=== PATIENT | male | born 1985 | race Two or more races ===

== ENCOUNTER 2019-07-16 13:34 | Emergency (ER) | payer BC ==
[~2019-07-16] VITALS: Ht 188 cm; Wt 84.4 kg
[2019-07-16] MEDS ORDERED: IV NORMAL SALINE 1000ML BAG 1,000 ML IV SCH (13:47)
--- NOTE | 2019-07-16 13:52 | PHYS DOC ---
Adult General Chief Complaint Chief Complaint: ABDOMINAL PAIN HPI HPI Patient is a 33-year-old male who presents with complaint of right-sided abdominal pain that started last night about 1 AM. Patient states that pain got much more severe around 6 AM this morning stating that it's around a 9 out of 10 pain. He states that pain is been constant since that time. Patient initially was seen over at urgent care earlier this afternoon and they had recommended the patient come to the emergency room for CT to evaluate for appendicitis. Patient states that pain is worsened when he walks or when the car goes over bumps. He states that he has been nauseated but has had no vomiting. His last normal bowel movement was yesterday.[] Review of Systems Review of Systems Constitutional: Denies fever or chills [] Respiratory: Denies cough or shortness of breath [] Cardiovascular: No additional information not addressed in HPI [] GI: Complains of abdominal pain with nausea. Denies vomiting or diarrhea [] : Denies dysuria or hematuria [] Musculoskeletal: Denies back pain or joint pain [] Integument: Denies rash or skin lesions [] Neurologic: Denies headache, focal weakness or sensory changes [] All other systems were reviewed and found to be within normal limits, except as documented in this note. Current Medications Current Medications Current Medications Medications (Trade) Dose Ordered Sig/Isis Start Time Stop Time Status Last Admin Dose Admin Info (CONTRAST GIVEN -- Rx MONITORING) 1 each PRN DAILY PRN 07/16/19 15:15 07/18/19 15:14 Iohexol (Omnipaque 300 Mg/ml) 75 ml 1X ONCE 07/16/19 15:00 07/16/19 15:07 DC 07/16/19 15:03 75 ML Morphine Sulfate (Morphine Sulfate) 4 mg PRN Q15MIN PRN 07/16/19 14:00 07/17/19 13:59 07/16/19 13:59 4 MG Ondansetron HCl (Zofran) 4 mg 1X ONCE 07/16/19 14:00 07/16/19 14:01 DC 07/16/19 14:00 4 MG Sodium Chloride 1,000 ml @ 1,000 mls/hr Q1H 07/16/19 13:47 07/16/19 14:46 DC 07/16/19 13:59 1,000 MLS/HR Allergies Allergies Allergies Coded Allergies Type Severity Reaction Last Updated Verified No Known Drug Allergies 07/16/19 No Physical Exam Physical Exam Constitutional: Well developed, well nourished, no acute distress, non-toxic appearance. [] HENT: Normocephalic, atraumatic, bilateral external ears normal, oropharynx moist, no oral exudates, nose normal. [] Eyes: PERRLA, EOMI, conjunctiva normal, no discharge. [] Neck: Normal range of motion, no tenderness, supple. [] Cardiovascular: Regular rate and rhythm[] Lungs & Thorax: Bilateral breath sounds clear to auscultation [] Abdomen: Bowel sounds normal, soft, with moderate right lower quadrant tenderness. [] Skin: Warm, dry, no erythema, no rash. [] Extremities: No tenderness, no cyanosis, no clubbing, ROM intact, no edema. [] Neurologic: Alert and oriented X 3, no focal deficits noted. [] Current Patient Data Vital Signs Vital Signs Date Time Temp Pulse Resp B/P (MAP) Pulse Ox O2 Delivery O2 Flow Rate FiO2 07/16/19 13:59 14 98 07/16/19 13:48 55 129/68 (88) Room Air 07/16/19 13:37 97.5 97.5 Lab Values Laboratory Tests Test 07/16/19 14:11 White Blood Count 15.6 x10^3/uL (4.0-11.0) H Red Blood Count 4.45 x10^6/uL (4.30-5.70) Hemoglobin 13.8 g/dL (13.0-17.5) Hematocrit 41.0 % (39.0-53.0) Mean Corpuscular Volume 92 fL (79-100) Mean Corpuscular Hemoglobin 31 pg (25-35) Mean Corpuscular Hemoglobin Concent 34 g/dL (31-37) Red Cell Distribution Width 13.4 % (11.5-14.5) Platelet Count 231 x10^3/uL (140-400) Neutrophils (%) (Auto) 89 % (31-73) H Lymphocytes (%) (Auto) 4 % (24-48) L Monocytes (%) (Auto) 6 % (0-9) Eosinophils (%) (Auto) 0 % (0-3) Basophils (%) (Auto) 0 % (0-3) Neutrophils # (Auto) 14.0 x10^3/uL (1.8-7.7) H Lymphocytes # (Auto) 0.7 x10^3/uL (1.0-4.8) L Monocytes # (Auto) 0.9 x10^3/uL (0.0-1.1) Eosinophils # (Auto) 0.0 x10^3/uL (0.0-0.7) Basophils # (Auto) 0.0 x10^3/uL (0.0-0.2) Platelet Estimate Pending Sodium Level 141 mmol/L (136-145) Potassium Level 3.8 mmol/L (3.5-5.1) Chloride Level 106 mmol/L (98-107) Carbon Dioxide Level 27 mmol/L (21-32) Anion Gap 8 (6-14) Blood Urea Nitrogen 21 mg/dL (8-26) Creatinine 0.7 mg/dL (0.7-1.3) Estimated GFR (Cockcroft-Gault) 129.9 BUN/Creatinine Ratio 30 (6-20) H Glucose Level 127 mg/dL (70-99) H Calcium Level 8.1 mg/dL (8.5-10.1) L Total Bilirubin 2.4 mg/dL (0.2-1.0) H Aspartate Amino Transferase (AST) 23 U/L (15-37) Alanine Aminotransferase (ALT) 61 U/L (16-63) Alkaline Phosphatase 63 U/L (46-116) Total Protein 6.8 g/dL (6.4-8.2) Albumin 3.5 g/dL (3.4-5.0) Albumin/Globulin Ratio 1.1 (1.0-1.7) Lipase 67 U/L (73-393) L Laboratory Tests 07/16/19 14:11 Laboratory Tests 07/16/19 14:11 EKG EKG [] Radiology/Procedures Radiology/Procedures [] Impressions: PROCEDURE: CT ABD PELV W/ IV CONTRST ONLY CT of the abdomen and pelvis with contrast. HISTORY: Right lower quadrant pain CT scan of the abdomen pelvis was done using 75 mL Omnipaque 300 contrast. The lung bases are clear. There is no effusion. A liver lesion is not identified. Gallbladder is mildly distended but without calcified gallstones or gallbladder wall thickening. Spleen and adrenal glands are normal. Pancreas is normal. There is no mass or hydronephrosis in the kidneys. A ureteral calculus is not identified. There is no bowel obstruction. Appendix is normal. IMPRESSION: 1. Mildly distended gallbladder without gallbladder wall thickening. 2. No renal or ureteral calculus noted. 3. No bowel obstruction. 4. Normal appendix. PQRS Compliance Statement: One or more of the following individualized dose reduction techniques were utilized for this examination: 1. Automated exposure control 2. Adjustment of the mA and/or kV according to patient size 3. Use of iterative reconstruction technique Electronically signed by: Champ Olivier MD (07/16/2019 3:13 PM) [id number] DICTATED and SIGNED BY: CHAMP OLIVIER MD DATE: 07/16/191512 Course & Med Decision Making Course & Med Decision Making Pertinent Labs and Imaging studies reviewed. (See chart for details) [] Dragon Disclaimer Dragon Disclaimer This electronic medical record was generated, in whole or in part, using a voice recognition dictation system. Departure Departure Impression: Primary Impression: Lower abdominal pain Disposition: 01 HOME, SELF-CARE Condition: STABLE Patient Instructions: Abdominal Pain Scripts Ondansetron (ONDANSETRON ODT) 4 Mg Tab.rapdis 1 TAB PO PRN Q6-8HRS PRN for NAUSEA, #15 TAB Prov: BENITA VALDOVINOS Jr. DO 07/16/19 Hydrocodone/Apap 5-325 (NORCO 5-325 TABLET) 1 Each Tablet 1-2 EACH PO PRN Q6HRS PRN for PAIN, #15 as needed for pain Prov: BENITA VALDOVINOS Jr. DO 07/16/19 BENITA VALDOVINOS Jr. DO Jul 16, 2019 13:52
[2019-07-16] MEDS ORDERED: MORPHINE SULFATE 4 MG/ML VIAL. IV/SQ PRN (14:00)
[2019-07-16] MEDS ORDERED: ONDANSETRON PF 4 MG/2 ML VIAL. IV ONE (14:00)
[2019-07-16 14:18] LABS: BASO % 0 % (0-3); EOS % 0 % (0-3); HEMOGLOBIN 13.8 g/dL (13.0-17.5); LYMPH # 0.7 x10^3/uL (1.0-4.8); LYMPH % 4 % (24-48); MEAN CORPUSCULAR HEMOGLOBIN 31 pg (25-35); MEAN CORPUSCULAR HGB CONC 34 g/dL (31-37); MEAN CORPUSCULAR VOLUME 92 fL (79-100); MONO # 0.9 x10^3/uL (0.0-1.1); MONO % 6 % (0-9); NEUT % 89 % (31-73); PLATELET COUNT 231 x10^3/uL (140-400); RED BLOOD COUNT 4.45 x10^6/uL (4.30-5.70); RED CELL DISTRIBUTION WIDTH 13.4 % (11.5-14.5); WHITE BLOOD COUNT 15.6 x10^3/uL (4.0-11.0)
[2019-07-16 14:27] LABS: CALCIUM 8.1 mg/dL (8.5-10.1); CREATININE 0.7 mg/dL (0.7-1.3); GFR 129.9; POTASSIUM 3.8 mmol/L (3.5-5.1)
[2019-07-16 14:32] LABS: ALBUMIN 3.5 g/dL (3.4-5.0); ALBUMIN/GLOBULIN RATIO 1.1 (1.0-1.7); TOTAL BILIRUBIN 2.4 mg/dL (0.2-1.0); TOTAL PROTEIN 6.8 g/dL (6.4-8.2)
[2019-07-16 14:48] VITALS: BP 108/57
[2019-07-16] MEDS ORDERED: IOHEXOL 300 MG/ML 100ML VIAL. IV ONE (15:00)
[2019-07-16] MEDS ORDERED: CONTRAST GIVEN. MC PRN (15:15)
--- NOTE | 2019-07-16 15:15 | RAD ---
CT of the abdomen and pelvis with contrast. HISTORY: Right lower quadrant pain CT scan of the abdomen pelvis was done using 75 mL Omnipaque 300 contrast. The lung bases are clear. There is no effusion. A liver lesion is not identified. Gallbladder is mildly distended but without calcified gallstones or gallbladder wall thickening. Spleen and adrenal glands are normal. Pancreas is normal. There is no mass or hydronephrosis in the kidneys. A ureteral calculus is not identified. There is no bowel obstruction. Appendix is normal. IMPRESSION: 1. Mildly distended gallbladder without gallbladder wall thickening. 2. No renal or ureteral calculus noted. 3. No bowel obstruction. 4. Normal appendix. PQRS Compliance Statement: One or more of the following individualized dose reduction techniques were utilized for this examination: 1. Automated exposure control 2. Adjustment of the mA and/or kV according to patient size 3. Use of iterative reconstruction technique Electronically signed by: Devan Kimball MD (07/16/2019 3:13 PM) [id number]
[2019-07-16 15:25] LABS: % BANDS 11 % (0-9); % LYMPHS 4 % (24-48); % MONOS 8 % (0-10); % SEGS 77 % (35-66)
[2019-07-16 15:27] LABS: PLT ESTIMATE ADEQUATE (ADEQUATE)
[2019-07-16] MEDS ORDERED: ONDA4TAB12 PO (15:27)
[2019-07-16] MEDS ORDERED: HYDR-3164 PO (15:27)
[2019-07-17] MEDS ORDERED: HYOS0.1265 SL (04:35)
[2019-07-17] MEDS ORDERED: FAMO-63 PO (04:35)
== END 2019-07-16 15:35 | disposition home or self-care (01) ==
LOC: ER 13:34
DX: R10.31 Right lower quadrant pain (principal); R11.0 Nausea; Z79.899 Other long term (current) drug therapy
CPT/HCPCS: 36415; 74177; 80053; 83690; 85007; 85025; 96374; 96375; 99285; J2270; J2405; J7030; Q9967

== ENCOUNTER 2019-07-17 03:11 | Emergency (ER) | payer BC ==
[~2019-07-17] VITALS: Ht 188 cm; Wt 84.4 kg
[~2019-07-17 03:11] MED LIST: HYDR-3164 PO; ONDA4TAB12 PO
[2019-07-17] MEDS ORDERED: ONDANSETRON PF 4 MG/2 ML VIAL. IV ONE (03:30)
[2019-07-17] MEDS ORDERED: FAMOTIDINE 20 MG/2 ML VIAL IVP ONE (03:30)
[2019-07-17] MEDS ORDERED: IV NORMAL SALINE 1000ML BAG 1,000 ML IV ONE (03:30)
[2019-07-17] MEDS ORDERED: KETOROLAC 15 MG/ML VIAL. IVP ONE (03:30)
--- NOTE | 2019-07-17 03:48 | PHYS DOC ---
Past Medical History Past Medical History: No Pertinent History Past Surgical History: No Surgical History Alcohol Use: None Drug Use: None Adult General Chief Complaint Chief Complaint: ABDOMINAL PAIN HPI HPI Patient is a 33 year old male who presents with abdominal pain. Pt is accompanied by his and since he only speaks [place]an, his translated for him. Pt reports having burning, constant RUQ and epigastric abdominal pain that started on Sat. He rates it as 8/10. Pt presented to the ED in the afternoon yesterday and CT abdomen shows to have mildly dilated gallbladder without any signs of gallbladder wall thickening. Pt reports that he has developed subjective fever, and some radiation of pain to his middle back since last episode. Denies any hematochezia, melena, chest pain, SOB, palpitation. Review of Systems Review of Systems Constitutional: Positive fever or chills Eyes: Denies redness or eye pain HENT: Denies nasal congestion or sore throat Respiratory: Denies cough or shortness of breath Cardiovascular: Denies chest pain or palpitations GI: Positive abdominal pain, nausea, or vomiting : Denies dysuria or hematuria Musculoskeletal: Denies back pain or joint pain Integument: Denies rash or skin lesions Neurologic: Denies headache, focal weakness or sensory changes Complete systems were reviewed and found to be within normal limits, except as documented in this note. Current Medications Current Medications Current Medications Medications (Trade) Dose Ordered Sig/Isis Start Time Stop Time Status Last Admin Dose Admin Famotidine (Pepcid Vial) 20 mg 1X ONCE 07/17/19 03:30 07/17/19 03:31 DC 07/17/19 04:13 20 MG Hyoscyamine (Anaspaz) 0.125 mg 1X ONCE 07/17/19 05:00 07/17/19 05:01 DC 07/17/19 05:08 0.125 MG Ketorolac Tromethamine (Toradol 15mg Vial) 15 mg 1X ONCE 07/17/19 03:30 07/17/19 03:31 DC 07/17/19 04:13 15 MG Ondansetron HCl (Zofran) 4 mg 1X ONCE 07/17/19 03:30 07/17/19 03:31 DC 07/17/19 04:12 4 MG Sodium Chloride 1,000 ml @ 1,000 mls/hr 1X ONCE 07/17/19 03:30 07/17/19 04:29 DC 07/17/19 04:12 1,000 MLS/HR Allergies Allergies Allergies Coded Allergies Type Severity Reaction Last Updated Verified No Known Drug Allergies 07/16/19 No Physical Exam Physical Exam Constitutional: Well developed, well nourished, no acute distress, non-toxic appearance HENT: Normocephalic, atraumatic, oropharynx moist Eyes: Conjunctiva normal, no discharge Neck: Normal range of motion, no tenderness, supple Cardiovascular: Heart rate normal, regular rhythm Lungs & Thorax: Bilateral breath sounds clear to auscultation, no wheezing Abdomen: Soft, mild tenderness in RUQ, no guarding, no rebound tenderness. Skin: Warm, dry, no erythema, no rash Back: No tenderness, no CVA tenderness Extremities: No tenderness, ROM intact, no edema Neurologic: Alert and oriented X 3, no focal deficits noted Psychologic: Affect normal, judgment normal, mood normal Current Patient Data Vital Signs Vital Signs Date Time Temp Pulse Resp B/P (MAP) Pulse Ox O2 Delivery O2 Flow Rate FiO2 07/17/19 04:53 58 115/55 (75) 96 Room Air 07/17/19 03:17 99.0 16 99.0 Lab Values Laboratory Tests Test 07/17/19 03:30 07/17/19 03:35 Urine Collection Type Unknown Urine Color Yellow Urine Clarity Clear Urine pH 6.0 Urine Specific [place] >=1.030 Urine Protein Negative mg/dL (NEG-TRACE) Urine Glucose (UA) 250 mg/dL (NEG) Urine Ketones (Stick) Negative mg/dL (NEG) Urine Blood Negative (NEG) Urine Nitrite Negative (NEG) Urine Bilirubin Negative (NEG) Urine Urobilinogen Dipstick 1.0 mg/dL (0.2 mg/dL) Urine Leukocyte Esterase Negative (NEG) Urine RBC Occ /HPF (0-2) Urine WBC Occ /HPF (0-4) Urine Squamous Epithelial Cells Few /LPF Urine Bacteria 0 /HPF (0-FEW) Urine Mucus Slight /LPF White Blood Count 13.8 x10^3/uL (4.0-11.0) H Red Blood Count 4.29 x10^6/uL (4.30-5.70) L Hemoglobin 13.3 g/dL (13.0-17.5) Hematocrit 39.0 % (39.0-53.0) Mean Corpuscular Volume 91 fL (79-100) Mean Corpuscular Hemoglobin 31 pg (25-35) Mean Corpuscular Hemoglobin Concent 34 g/dL (31-37) Red Cell Distribution Width 13.5 % (11.5-14.5) Platelet Count 226 x10^3/uL (140-400) Neutrophils (%) (Auto) 81 % (31-73) H Lymphocytes (%) (Auto) 9 % (24-48) L Monocytes (%) (Auto) 9 % (0-9) Eosinophils (%) (Auto) 1 % (0-3) Basophils (%) (Auto) 0 % (0-3) Neutrophils # (Auto) 11.2 x10^3/uL (1.8-7.7) H Lymphocytes # (Auto) 1.3 x10^3/uL (1.0-4.8) Monocytes # (Auto) 1.2 x10^3/uL (0.0-1.1) H Eosinophils # (Auto) 0.1 x10^3/uL (0.0-0.7) Basophils # (Auto) 0.0 x10^3/uL (0.0-0.2) Sodium Level 142 mmol/L (136-145) Potassium Level 3.6 mmol/L (3.5-5.1) Chloride Level 105 mmol/L (98-107) Carbon Dioxide Level 27 mmol/L (21-32) Anion Gap 10 (6-14) Blood Urea Nitrogen 13 mg/dL (8-26) Creatinine 0.7 mg/dL (0.7-1.3) Estimated GFR (Cockcroft-Gault) 129.9 BUN/Creatinine Ratio 19 (6-20) Glucose Level 133 mg/dL (70-99) H Lactic Acid Level 1.1 mmol/L (0.4-2.0) Calcium Level 8.1 mg/dL (8.5-10.1) L Magnesium Level 1.8 mg/dL (1.8-2.4) Total Bilirubin 1.3 mg/dL (0.2-1.0) H Aspartate Amino Transferase (AST) 18 U/L (15-37) Alanine Aminotransferase (ALT) 51 U/L (16-63) Alkaline Phosphatase 56 U/L (46-116) Total Protein 6.6 g/dL (6.4-8.2) Albumin 3.1 g/dL (3.4-5.0) L Albumin/Globulin Ratio 0.9 (1.0-1.7) L Lipase 50 U/L (73-393) L Laboratory Tests 07/17/19 03:35 Laboratory Tests 07/17/19 03:35 EKG EKG [] Radiology/Procedures Radiology/Procedures PROCEDURE: ABDOMEN LTD ABDOMEN LTD INDICATION: Right upper quadrant pain COMPARISON: CT 07/16/2019. TECHNIQUE: Limited transverse and longitudinal grayscale images of the right upper quadrant with color and pulsed doppler utilized as appropriate. FINDINGS: The liver demonstrates increased echogenicity without focal lesions. The liver measures 19.4 cm. The portal vein is patent with normal antegrade flow. The gallbladder is normal in appearance without stones. No wall thickening or pericholecystic fluid. Negative sonographic Leblanc's sign. No intrahepatic or extrahepatic biliary dilatation. The common bile duct measures 0.5 cm. The visualized portions of the pancreas demonstrate normal echogenicity without focal lesions. The right kidney has normal echogenicity and measures 11.3 cm. No hydronephrosis, shadowing stones or suspicious masses seen. No ascites or fluid collections. The aorta and IVC are normal diameter where visualized. IMPRESSION: 1. No evidence of acute cholecystitis. Normal caliber common bile duct. 2. Hepatomegaly and diffuse hepatic steatosis. Electronically signed by: Raúl Martin MD (07/17/2019 4:22 AM) [id number] Course & Med Decision Making Course & Med Decision Making Pertinent Labs and Imaging studies reviewed. (See chart for details) Patient is a 33 year old male who presents with abdominal pain. DDX consider: cholecystitis, cholelithiasis, choledocholithiasis, gastritis, peptic ulcer disease, doubt pancreatitis with normal recent lipase from yesterday visit, doub t appendicitis or obstruction, colitis from unremarkable yesterday CT abdomen. Will order labs, U/S RUQ, provide pain control, pepcid and 1L bolus at bedside. Pt is stable, will reassess. Labs stable. Symptomatic treatment provided with interval improvement. US without acute process. Patient stable for discharge with outpatient follow-up with PCP/GI. GI referral provided. Discussed findings and plan with patient and family, who acknowledge understanding and agreement. Dragon Disclaimer Dragon Disclaimer This electronic medical record was generated, in whole or in part, using a voice recognition dictation system. Departure Departure Impression: Primary Impression: Abdominal pain Disposition: HOME, SELF-CARE Condition: STABLE Referrals: NO PCP (PCP) KIARRA HARMON MD Patient Instructions: Abdominal Pain (Nonspecific) Scripts Hyoscyamine Sulfate (LEVSIN-SL) 0.125 Mg Tab.subl 0.125 MG SL Q4-6HRS PRN for PAIN, #20 TAB Prov: LIZA MURILLO DO 07/17/19 Famotidine (PEPCID) 20 Mg Tablet 20 MG PO BID, #14 TAB Prov: LIZA MURILLO DO 07/17/19 Problem Qualifiers Primary Impression: Abdominal pain Abdominal location: unspecified location Qualified Codes: R10.9 - Unspecified abdominal pain LIZA MURILLO DO Jul 17, 2019 03:48
[2019-07-17 03:49] LABS: BASO % 0 % (0-3); EOS # 0.1 x10^3/uL (0.0-0.7); EOS % 1 % (0-3); HEMOGLOBIN 13.3 g/dL (13.0-17.5); LYMPH # 1.3 x10^3/uL (1.0-4.8); LYMPH % 9 % (24-48); MEAN CORPUSCULAR HEMOGLOBIN 31 pg (25-35); MEAN CORPUSCULAR HGB CONC 34 g/dL (31-37); MEAN CORPUSCULAR VOLUME 91 fL (79-100); MONO # 1.2 x10^3/uL (0.0-1.1); MONO % 9 % (0-9); NEUT # 11.2 x10^3/uL (1.8-7.7); NEUT % 81 % (31-73); PLATELET COUNT 226 x10^3/uL (140-400); RED BLOOD COUNT 4.29 x10^6/uL (4.30-5.70); RED CELL DISTRIBUTION WIDTH 13.5 % (11.5-14.5); WHITE BLOOD COUNT 13.8 x10^3/uL (4.0-11.0)
[2019-07-17 03:51] LABS: BILIRUBIN,URINE NEGATIVE (NEG); CLARITY,URINE CLEAR; COLOR,URINE YELLOW; NITRITE,URINE NEGATIVE (NEG); PROTEIN,URINE NEGATIVE (NEG-TRACE)
[2019-07-17 03:58] LABS: CALCIUM 8.1 mg/dL (8.5-10.1); CREATININE 0.7 mg/dL (0.7-1.3); GFR 129.9; POTASSIUM 3.6 mmol/L (3.5-5.1)
[2019-07-17 04:04] LABS: ALBUMIN 3.1 g/dL (3.4-5.0); ALBUMIN/GLOBULIN RATIO 0.9 (1.0-1.7); MAGNESIUM 1.8 mg/dL (1.8-2.4); TOTAL BILIRUBIN 1.3 mg/dL (0.2-1.0); TOTAL PROTEIN 6.6 g/dL (6.4-8.2)
[2019-07-17 04:05] LABS: BACTERIA,URINE 0 /HPF (0-FEW); RBC,URINE OCC /HPF (0-2); SQUAMOUS EPITHELIAL CELL,UR FEW /LPF; WBC,URINE OCC /HPF (0-4)
--- NOTE | 2019-07-17 04:25 | RAD ---
ABDOMEN LTD INDICATION: Right upper quadrant pain COMPARISON: CT 07/16/2019. TECHNIQUE: Limited transverse and longitudinal grayscale images of the right upper quadrant with color and pulsed doppler utilized as appropriate. FINDINGS: The liver demonstrates increased echogenicity without focal lesions. The liver measures 19.4 cm. The portal vein is patent with normal antegrade flow. The gallbladder is normal in appearance without stones. No wall thickening or pericholecystic fluid. Negative sonographic Leblanc's sign. No intrahepatic or extrahepatic biliary dilatation. The common bile duct measures 0.5 cm. The visualized portions of the pancreas demonstrate normal echogenicity without focal lesions. The right kidney has normal echogenicity and measures 11.3 cm. No hydronephrosis, shadowing stones or suspicious masses seen. No ascites or fluid collections. The aorta and IVC are normal diameter where visualized. IMPRESSION: 1. No evidence of acute cholecystitis. Normal caliber common bile duct. 2. Hepatomegaly and diffuse hepatic steatosis. Electronically signed by: Raúl Martin MD (07/17/2019 4:22 AM) [id number]
[2019-07-17] MEDS ORDERED: FAMO-63 PO (04:35)
[2019-07-17] MEDS ORDERED: HYOS0.1265 SL (04:35)
[2019-07-17 04:53] VITALS: BP 115/55
[2019-07-17] MEDS ORDERED: HYOSCYAMINE 0.125 MG TAB.RAPDIS PO ONE (05:00)
== END 2019-07-17 05:10 | disposition home or self-care (01) ==
LOC: ER 03:11
DX: R10.11 Right upper quadrant pain (principal); R50.9 Fever, unspecified; Z79.899 Other long term (current) drug therapy
CPT/HCPCS: 36415; 76705; 80053; 81001; 83605; 83690; 83735; 85025; 96361; 96374; 96375; 99285; J1885; J2405; J3490; J7030